=== PATIENT | female | born 1960 | race Caucasian/White ===

== ENCOUNTER 2019-01-13 10:30 | Inpatient (IN) | payer BC, OTHER ==
--- NOTE | 2019-01-02 09:18 | HP ---
HISTORY AND PHYSICAL: DATE OF ADMISSION/SURGERY: 01/13/19 DATE OF OFFICE VISIT: 01/02/19 SURGEON: Alondra Malik MD.* (DICTATED BY ELLIOT WEAVER) PROCEDURE: Left total hip arthroplasty. CHIEF COMPLAINT: Left hip pain. HISTORY OF PRESENT ILLNESS: Ms. Fine is a 58-year-old female with continued complaints of left hip pain. She has failed conservative treatment and elected to proceed with a left total hip arthroplasty. PAST MEDICAL HISTORY: Hypertension, GERD, and a history of hyperthyroidism. PAST SURGICAL HISTORY: Hernia repair and wisdom teeth removal. CURRENT MEDICATIONS: 1. Triamterene/hydrochlorothiazide 37.5/25 mg a day. 2. Glucosamine/chondroitin. 3. Calcium with vitamin D. 4. Famotidine. 5. Multivitamin. ALLERGIES: No known drug allergies. FAMILY HISTORY: Cancer and diabetes. SOCIAL HISTORY: She is a 58-year-old female. She lives with her . She does not smoke or use drugs. She reports occasional alcohol. REVIEW OF SYSTEMS: A complete 14-point review of systems was reviewed with the patient. It is positive for GERD and a history of hyperthyroidism, which was treated with methimazole. She denies a history of DVT, PE, hepatitis, HIV, or anesthesia problems. PHYSICAL EXAMINATION GENERAL: She is well developed, well nourished, in no acute distress. VITAL SIGNS: She stands 61.5 inches tall, weighs 144 pounds. Her blood pressure is 134/86, her heart rate is 64. HEENT: Normocephalic, atraumatic. NECK: Supple. No palpable lymph nodes. PULMONARY: The lungs are clear to auscultation bilaterally. CARDIAC: Regular rate and rhythm. Strong S1, S2. ABDOMEN: The abdomen is soft, nontender, nondistended. NEUROLOGICAL: She is alert and oriented x3. MUSCULOSKELETAL: Left lower extremity: The skin is intact. There are no open wounds or abrasions. She walks with an antalgic type gait favoring her left hip. She has decreased internal and external rotation of the left hip. She has a 2+ dorsalis pedis pulse. She is able to dorsiflex and plantar flex and has intact sensation. ASSESSMENT AND PLAN: Ms. Fine is a 58-year-old female with end-stage osteoarthritis of the left hip. She has failed conservative treatment and elected to proceeded with a left total hip arthroplasty. The surgery is scheduled for 01/13/[address] Malik discussed the risks and benefits of the surgery at today's visit and all of her questions were answered. She will follow up with Dr. Malik 2 weeks after the surgery. ELLIOT WEAVER [id number]/[facility] #: [id number] KEIRA
[~2019-01-13 10:30] MED LIST: Buffered Lidocaine 1% SYRIN* 1 ML/SYRINGE INTRADERM ONE; Dexamethasone IV* 4 MG/ML 1 ML (4 MG) IV SLOW PU ONE; Famotidine IV* 10 MG/ML 2 ML (20 mg) IV ONE; Gabapentin CAP(*) 300 MG PO ONE; Lactated Ringers 1000 ML Bag* 1,000 ML IV SCH; Tranexamic Acid 1,000 MG in NS 0.9% 50 ML* (outpatient use) IV SCH; celeCOXIB CAP* 200 MG PO ONE
--- OUTSIDE RECORDS SUMMARY | 2019-01-13 13:24 | XMS REPORT | Continuity of Care Document ---
:1960 External Reference #:[id number] Author Name Eileen Sims Care Team Providers Name Role Phone Bala Crow DO Primary Care Physician Unavailable Payers Date Identification Numbers Payment Provider Subscriber Policy Number: [id number] [facility] Jesu Fine PayID: [id number] [address] [place] [address] Problems Active Problems Provider Date Localized, primary osteoarthritis Jarrett Bobby M.D. Onset: 12/29/2015 Enthesopathy of knee Jarrett Bobby M.D. Onset: 12/29/2015 Localized, primary osteoarthritis of the Alondra Malik M.D. 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 ETOH Use Occasionally consumes alcohol Tobacco Use Start: Unknown Patient has never smoked Recreational Drug Use Never Used Drugs Smoking Status Reviewed: 01/08/19 Patient has never smoked Exercise Type/Frequency Exercises sporadically Allergies, Adverse Reactions, Alerts Description No Known Drug Allergies Medications Active Medications SIG Qnty Indications Ordering Provider Date Triamterene/Hydrochloro 1 by mouth every Unknown thiazide day 37.5-25mg Capsules Glucosamine Chondroitin Unknown 1500 Complex Calcium + D 1 tab by mouth Unknown every day Famotidine 1 pill every Unknown other day Multi Vitamin Daily 1 tab by mouth Unknown every day Vitamin D 1 tab by mouth Unknown every day History Medications Omeprazole 1 by mouth every day Unknown - 01/01/[address] Methimazole 1 by mouth every day Unknown - 01/01/2019 5mg Tablets Nasacort Allergy 24HR 1 spray both nares Unknown - 01/01/2019 55mcg/Act once daily Aerosol Vitamin D2 Unknown - 01/01/2019 Vitamin D3 Unknown - 01/01/2019 Medications Administered in Office Medication SIG Qnty Indications Ordering Provider Date Synvisc Or Synvisc-One Injection 1 Alondra Malik M.D. 11/28/2018 MG Injection Synvisc Or Synvisc-One Injection 1 Alondra Malik M.D. 11/21/2018 MG Injection Synvisc Or Synvisc-One Injection 1 Alondra Malik M.D. 11/14/2018 MG Injection Depomedrol 40MG Alondra Malik M.D. 10/13/2018 Injection Vital Signs Date Vital Result Comment 01/08/2019 7:32am Height 61.5 inches 5'1.50" Weight 147.00 lb Heart Rate 68 /min BP Systolic Sitting 142 mmHg Lue regular cuff BP Diastolic Sitting 84 mmHg Lue regular cuff Respiratory Rate 12 /min O2 % BldC Oximetry 97 % BMI (Body Mass Index) 27.3 kg/m2 Neck Circumference in inches 14 01/02/2019 8:05am Height 61.5 inches 5'1.50" Weight 144.00 lb Heart Rate 64 /min BP Systolic 134 mmHg BP Diastolic 82 mmHg Respiratory Rate 16 /min Body Temperature 99.2 F Pain Level 2 BMI (Body Mass Index) 26.8 kg/m2 11/28/2018 8:11am Height 61.5 inches 5'1.50" Weight 143.00 lb Heart Rate 72 /min BP Systolic 138 mmHg BP Diastolic 82 mmHg Pain Level 2 BMI (Body Mass Index) 26.6 kg/m2 11/21/2018 8:48am Height 61.5 inches 5'1.50" Weight 143.00 lb Heart Rate 82 /min BP Systolic 122 mmHg BP Diastolic 74 mmHg Pain Level 2 BMI (Body Mass Index) 26.6 kg/m2 11/14/2018 8:38am Height 61.5 inches 5'1.50" Weight 147.50 lb Heart Rate 75 /min BP Systolic 134 mmHg BP Diastolic 88 mmHg Body Temperature 97.8 F Pain Level 1 BMI (Body Mass Index) 27.4 kg/m2 10/27/2018 9:41am Height 61.5 inches 5'1.50" Weight 146.00 lb BP Systolic 152 mmHg BP Diastolic 92 mmHg Pain Level 0 BMI (Body Mass Index) 27.1 kg/m2 10/13/2018 9:27am Height 61.5 inches 5'1.50" Weight 149.00 lb Heart Rate 80 /min BP Systolic 134 mmHg BP Diastolic 84 mmHg Pain Level 8 BMI (Body Mass Index) 27.7 kg/m2 05/16/2016 8:02am Height 61 inches 5'1" Weight 150.00 lb BP Systolic Sitting 126 mmHg BP Diastolic Sitting 80 mmHg Pain Level 0 0/10 BMI (Body Mass Index) 28.3 kg/m2 02/23/2016 8:00am Height 61 inches 5'1" Weight 145.00 lb Pain Level 1 BMI (Body Mass Index) 27.4 kg/m2 12/29/2015 9:17am Height 61 inches 5'1" Weight 145.00 lb Heart Rate 84 /min BP Systolic 125 mmHg BP Diastolic 87 mmHg BMI (Body Mass Index) 27.4 kg/m2 Results Test Date Facility Test Result H/L Range Note CBC Auto Diff 01/02/2019 [facility] White Blood 6.5 10^3/uL N 3.5-10.[address] [place] [address] [phone] Red Blood Count 5.20 10^6/uL High 3.70-4.87 Hemoglobin 15.0 g/dL N 12.0-16.0 Hematocrit 45 % N 35-47 Mean Corpuscular Volume 87 fL N 80-97 Mean Corpuscular Hemoglobin 29 pg N 27-31 Mean Corpuscular HGB Conc 33 g/dL N 31-36 Red Cell Distribution Width 14 % N 10-15 Platelet Count 289 10^3/uL N 150-450 Mean Platelet Volume 7.3 fL Low 7.4-10.4 Abs Neutrophils 3.6 10^3/uL N 1.5-7.7 Abs Lymphocytes 2.3 10^3/uL N 1.0-4.8 Abs Monocytes 0.5 10^3/uL N 0-0.8 Abs Eosinophils 0.1 10^3/uL N 0-0.6 Abs Basophils 0.1 10^3/uL N 0-0.2 Abs Nucleated RBC 0.0 10^3/uL Granulocyte % 54.8 % Lymphocyte % 35.5 % Monocyte % 7.0 % Eosinophil % 1.9 % Basophil % 0.8 % Nucleated Red Blood Cells % 0.1 Urinalysis Profile 01/02/2019 [facility] Urine Color Yellow [address] [place] [address] [phone] Urine Appearance Clear Urine Specific [place] 1.014 N 1.010-1.030 Urine pH 8.0 N 5-9 Urine Urobilinogen Negative Negative Urine Ketones Negative Negative Urine Protein Negative Negative Urine Leukocytes Negative Negative Urine Blood Negative Negative * * Abnormal Negative 1 Urine Nitrite Negative Negative Urine Bilirubin Negative Negative Urine Glucose Negative Negative Inr/Protime 01/02/2019 [facility] Inr 0.93 N 0.82-1.09 2 [facility] [employer] [place] [address] [phone] Laboratory test 01/02/2019 [facility] Partial 32.3 seconds N 26.0-38.0 finding [facility] [employer] [facility] [place] [address] PTT [phone] Type & Screen 01/02/2019 [facility] Patient A Positive [facility] [place] [address] [phone] Antibody Screen NEGATIVE Comp Metabolic Panel 01/02/2019 [facility] Sodium 141 mmol/L N 135-145 [facility] [place] [address] [phone] Potassium 4.2 mmol/L N 3.5-5.0 Chloride 103 mmol/L N 101-111 Co2 Carbon Dioxide 32 mmol/L N 22-32 Anion Gap 6 mmol/L N 2-11 Glucose 91 mg/dL N 70-100 Blood Urea Nitrogen 14 mg/dL N 6-24 Creatinine 0.65 mg/dL N 0.51-0.95 BUN/Creatinine Ratio 21.5 High 8-20 Calcium 10.6 mg/dL High 8.6-10.3 Total Protein 7.3 g/dL N 6.4-8.9 Albumin 4.5 g/dL N 3.2-5.2 Globulin 2.8 g/dL N 2-4 Albumin/Globulin Ratio 1.6 N 1-3 Total Bilirubin 0.70 mg/dL N 0.2-1.0 Alkaline Phosphatase 72 U/L N 34-104 Alt 59 U/L High 7-52 Ast 33 U/L N 13-39 Egfr Non- 93.6 >60 Egfr 113.3 >60 3 Urine Culture And 01/02/2019 [facility] Urine Culture SEE RESULT [address] [place] [address] [phone] Xray 10/13/2018 Senior Clinical Data Analyst In House Inj/Aspir <pending> Major JT Or Bursa W/ US 1 *Ascorbic acid is present which may interfere with detection of blood. 2 Standard intensity warfarin therapeutic range: 2.0-3.0 High intensity warfarin therapeutic range: 2.5-3.5 3 Because ethnic data is not always readily available, this report includes an eGFR for both -Americans and non- Americans. The National Kidney Disease Education Program (NKDEP) does not endorse the use of the MDRD equation for patients that are not between the ages of 18 and 70, are , have extremes of body size, muscle mass, or nutritional status, or are non- or non-. According to the National Kidney Foundation, irrespective of diagnosis, the stage of the disease is based on the level of kidney function: Stage Description GFR(mL/min/1.73 m(2)) 1 Kidney damage with normal or decreased GFR 90 2 Kidney damage with mild decrease in GFR 60-89 3 Moderate decrease in GFR 30-59 4 Severe decrease in GFR 15-29 5 Kidney failure <15 (or dialysis) 4 SEE RESULT BELOW Name: NATALY FINE : [address]: Alondra Malik MD Acct: [id number] Unit: [id number] AGE: 58 Location: PAT Re01/02/19 SEX: F Status: REG REF SPEC: [id number] NIYA: 01/02/19-1020 [facility] DR: Alondra Malik MD REQ: [id number] RECD: 01/02/19 STATUS: WILMER FIERRO DR: Bala Crow DO _ SOURCE: URINE SPDESC: ORDERED: Urine Culture QUERIES: Urine Source: Clean Catch Procedure Result Reported Site Urine Culture Final 01/03/19- 918 ML No growth of clinically significant organisms * ML - Main Lab . END OF REPORT DEPARTMENT OF PATHOLOGY, [address] [place] [address] José Reyes M.D. Director [facility] # [id number] Procedures Date Code Description Status 11/28/2018 Inject/Drain Joint/Bursa Major W/O US Completed 11/21/2018 Inject/Drain Joint/Bursa Major W/O US Completed 11/14/2018 Inject/Drain Joint/Bursa Major W/O US Completed 10/13/2018 Inj/Aspir Major JT Or Bursa W/ US Completed Encounters Type Date Location Provider Dx Diagnosis Office Visit 01/08/2019 Pulmonology And Sleep Faviola Pierce MD R06.83 Snoring 8:00a Services Of Becky R53.83 Other fatigue Office Visit 10/27/2018 9:15a Orthopedic Alondra M17.0 Bilateral primary Services Of Hector Malik osteoarthritis of C.M.A. knee M16.11 Unilateral primary osteoarthritis, right hip M16.12 Unilateral primary osteoarthritis, left hip M25.562 Pain in left knee M25.561 Pain in right knee M25.462 Effusion, left knee M25.461 Effusion, right knee M25.551 Pain in right hip M25.552 Pain in left hip Office Visit 10/13/2018 9:00a Orthopedic Alondra M17.0 Bilateral primary Services Of [facility] Malik osteoarthritis of C.M.A. knee M16.11 Unilateral primary osteoarthritis, right hip M16.12 Unilateral primary osteoarthritis, left hip M25.562 Pain in left knee M25.561 Pain in right knee M25.462 Effusion, left knee M25.461 Effusion, right knee M25.551 Pain in right hip M25.552 Pain in left hip Office Visit 05/16/2016 8:00a Orthopedic Naman Nava70.52 Other bursitis Services Son Young of knee, left C.M.A. knee M25.651 Stiffness of right hip, not elsewhere classified Office Visit 02/23/2016 Orthopedic Jarrett M17.12 Unilateral primary 8:00a Services Of Hector Bobby osteoarthritis, left C.M.A. knee M70.52 Other bursitis of knee, left knee Office Visit 12/29/2015 Orthopedic Jarrett M17.12 Unilateral primary 9:00a Services Of Hector Bobby osteoarthritis, left C.M.A. knee M70.52 Other bursitis of knee, left knee Plan of Treatment Future Appointment(s):03/03/2019 8:00 am - Ani Partida NP at Pulmonology And Sleep Services [facility]01/23/2019 8:15 am - ELLIOT Nathan at [facility]01/13/2019 1:00 pm - MARCELO Covarrubias at [facility]01/13/2019 1:00 pm - MARCELO Cleveland at [facility]01/13/2019 1:00 pm - Alondra Malik M.D. at [facility]01/08/2019 - Faviola Pierce, MDR06.83 SnoringNew Orders:Home Sleep Testing, Scheduled: 01/08/19Follow up:2 wkfgtU66.83 Other fatigue
--- OUTSIDE RECORDS SUMMARY | 2019-01-13 13:24 | XMS REPORT | Continuity of Care Document ---
:1960 External Reference #:[id number] Author Name Shameka Stanton Care Team Providers Name Role Phone Bala Crow DO Primary Care Physician Unavailable Payers Date Identification Numbers Payment Provider Subscriber Policy Number: [id number] [facility] Jesu Fine PayID: [id number] [address] [place] [address] Problems Active Problems Provider Date Localized, primary osteoarthritis Jarrett Bobby M.D. Onset: 12/29/2015 Enthesopathy of knee Jarrett Bobby M.D. Onset: 12/29/2015 Localized, primary osteoarthritis of the Alondra Malik M.D. 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 ETOH Use Occasionally consumes alcohol Tobacco Use Start: Unknown Patient has never smoked Smoking Status Reviewed: 01/02/19 Patient has never smoked Exercise Type/Frequency Exercises sporadically Allergies, Adverse Reactions, Alerts Description No Known Drug Allergies Medications Active Medications SIG Qnty Indications Ordering Provider Date Triamterene/Hydrochloro 1 by mouth every Unknown thiazide day 37.5-25mg Capsules Glucosamine Chondroitin Unknown 1500 Complex Calcium + D Unknown Famotidine Unknown History Medications Omeprazole 1 by mouth every day Unknown - 01/01/[address] Malonezoallison 1 by mouth every day Unknown - [...] Injection Vital Signs Date Vital Result Comment 01/02/2019 8:05am Height 61.5 inches 5'1.50" Weight [...] Date Facility Test Result H/L Range Note Xray 10/13/2018 Bad Cloth Checker In House Inj/Aspir Major JT Or Bursa W/ <pending> US Procedures Date Code Description Status 11/28/2018 Inject/Drain Joint/Bursa Major W/O US Completed 11/21/2018 Inject/Drain Joint/Bursa Major W/O US Completed 11/14/201812368 Inject/Drain Joint/Bursa Major W/O US Completed 10/13/2018 80697 Inj/Aspir Major JT Or Bursa W/ US Completed Encounters Type Date Location Provider Dx Diagnosis Office Visit 10/27/2018 Orthopedic Imelda Umaña7.0 Bilateral primary 9:15a Services Of Justa Young osteoarthritis of knee M16.11 Unilateral primary osteoarthritis, right hip M16.12 Unilateral primary osteoarthritis, left hip M25.562 Pain in left knee M25.561 Pain in right knee M25.462 Effusion, left knee M25.461 Effusion, right knee M25.551 Pain in right hip M25.552 Pain in left hip Office Visit 10/13/2018 9:00a Orthopedic Alondra Segura7.0 Bilateral primary Services Of Hector Malik osteoarthritis of C.M.A. knee M16.11 Unilateral primary osteoarthritis, right hip M16.12 Unilateral primary osteoarthritis, left hip M25.562 Pain in left knee M25.561 Pain in right knee M25.462 Effusion, left knee M25.461 Effusion, right knee M25.551 Pain in right hip M25.552 Pain in left hip Office Visit 05/16/2016 8:00a Orthopedic Jarrett Kanu, M70.52 Other bursitis Services Of Hector of knee, left C.M.A. knee M25.651 Stiffness [...] knee, left knee Plan of Treatment Future Appointment(s):01/23/2019 8:15 am - ELLIOT Nathan at [facility]..01/13/2019 1:00 pm - MARCELO Covarrubias at [facility]..01/13/2019 1:00 pm - MARCELO Cleveland at [facility]..01/08/2019 8:00 am - Faviola Pierce MD at Pulmonology And Sleep Services [facility]01/13/2019 1:00 pm - Alondra Malik M.D. at [facility]..01/02/2019 - Alondra Malik M.D.M16.12 Unilateral primary osteoarthritis, left hipFollow up:Follow up: 2 weeks after vkkeenmL98.552 Pain in left hip
--- OUTSIDE RECORDS SUMMARY | 2019-01-13 13:24 | XMS REPORT | Continuity of Care Document ---
:1960 External Reference #:[id number] Author Name ELLIOT Nathan Address [address] , [place] [address] Care Team Providers Name Role Phone Bala Crow DO Primary Care Physician Unavailable Payers Date Identification Numbers Payment Provider Subscriber Policy Number: [id number] [facility] Jesu Fine PayID: [id number] [address] [place] [address] Problems Active Problems Provider Date Localized, primary osteoarthritis Jarrett Bobby M.D. Onset: 12/29/2015 Enthesopathy of knee Jarrett Bobby M.D. Onset: 12/29/2015 Localized, primary osteoarthritis of the Alondrajasmeet Malik M.D. 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 ETOH Use Occasionally consumes alcohol Tobacco [...] every day Unknown - 01/01/2019 20mg Capsules Methimazole 1 by mouth every day Unknown [...] H/L Range Note CBC Auto Diff 01/02/2019 [facility] White Blood 6.5 10^3/uL N 3.5-10.[address] [place] [address] [phone] Red Blood Count 5.20 10^6/uL High 3.70-4.87 [...] Blood Cells % 0.1 Urinalysis Profile 01/02/2019 [facility] Urine Color Yellow [address] [place] [address] [phone] Urine Appearance Clear Urine Specific [place] 1.014 N 1.010-1.030 Urine pH 8.0 N 5-9 Urine Urobilinogen Negative Negative Urine Ketones Negative Negative Urine Protein Negative Negative Urine Leukocytes Negative Negative Urine Blood Negative Negative * * Abnormal Negative 1 Urine Nitrite Negative Negative Urine Bilirubin Negative Negative Urine Glucose Negative Negative Inr/Protime 01/02/2019 [facility] Inr 0.93 N 0.82-1.[address] [place] [address] [phone] Laboratory test 01/02/2019 [facility] Partial 32.3 seconds N 26.0-38.[address] [place] [address] PTT [phone] Type & Screen 01/02/2019 [facility] Patient A Positive [address] [place] [address] [phone] Antibody Screen NEGATIVE Comp Metabolic Panel 01/02/2019 [facility] Sodium 141 mmol/L N 135-[address] [place] [address] [phone] Potassium 4.2 mmol/L N 3.5-5.0 Chloride 103 [...] 113.3 >60 3 Urine Culture And 01/02/2019 [facility] Urine Culture SEE RESULT [address] [place] [address] [phone] Xray 10/13/2018 Temperature Regulator In House Inj/Aspir <pending> Major JT Or [...] [address]: Alondra Malik MD Acct: [id number] Unit: [id number] AGE: 58 Location: [facility] Re01/02/19 SEX: F Status: REG REF SPEC: [id number] NIYA: 01/02/19 [facility] DR: Alondra Malik MD REQ: [id number] RECD: 01/02/19 STATUS: WILMER FIERRO DR: Bala Crow DO _ SOURCE: URINE SPDESC: ORDERED: Urine Culture QUERIES: Urine Source: Clean Catch Procedure Result Reported Site Urine Culture Final 01/03/19918 ML No growth of clinically significant organisms * ML - Main Lab . END OF REPORT DEPARTMENT OF PATHOLOGY, [address] [place] [address] José Reyes M.D. Director [facility] # [id number] Procedures Date Code Description Status 11/28/2018 Inject/Drain Joint/Bursa Major W/O US Completed 11/21/2018 Inject/Drain Joint/Bursa Major W/O US Completed 11/14/2018 Inject/Drain Joint/Bursa Major W/O US Completed 10/13/2018 Inj/Aspir Major JT Or Bursa W/ US Completed Encounters Type Date Location Provider Dx Diagnosis Office Visit 10/27/2018 Orthopedic Yue Umaña.0 Bilateral primary 9:15a Services Of Justa Young [...] hip, not elsewhere classified Office Visit 02/23/2016 Marisol Segura7.12 Unilateral primary 8:00a Services Of Hector Bobby osteoarthritis, left C.M.A. knee M70.52 Other bursitis of knee, left knee Office Visit 12/29/2015 Marisol Segura7.12 Unilateral primary 9:00a Services Of Hector Bobby osteoarthritis, left C.M.A. knee M70.52 Other bursitis of knee, left knee Plan of Treatment Future Appointment(s):01/23/2019 8:15 am - ELLIOT Nathan at [facility]01/13/2019 1:00 pm - MARCELO Covarrubias at [facility]01/13/2019 1:00 pm - MARCELO Cleveland at [facility]01/08/2019 8:00 am - Faviola Pierce MD at [facility]01/13/2019 1:00 pm - Alondra Malik M.D. at [facility]01/02/2019 - Alondra Malik M.D.M16.12 Unilateral primary osteoarthritis, left hipFollow up:Follow up: 2 weeks after nrxjttfE47.552 Pain in left hip
[2019-01-13] MEDS ORDERED: celeCOXIB CAP* 200 MG ONE (13:34)
[2019-01-13] MEDS ORDERED: Gabapentin CAP(*) 300 MG ONE (13:34)
[2019-01-13] MEDS ORDERED: Dexamethasone IV* 4 MG/ML 1 ML (4 MG) ONE (13:34)
[2019-01-13] MEDS ORDERED: ceFAZolin 2 GM in NS PREMIX(*) 2 GM/100 ML BAG IVPB ONE (13:35)
[2019-01-13] MEDS ORDERED: Famotidine IV* 10 MG/ML 2 ML (20 mg) ONE (13:35)
[2019-01-13] MEDS ORDERED: Midazolam* 1 MG/ML 5 ML VIAL (5 MG) ONE (14:00)
[2019-01-13] MEDS ORDERED: KETAMINE HCL* 50 MG/ML 10 ML VIAL ONE (14:00)
[2019-01-13] MEDS ORDERED: Propofol* 10 MG/ML 20 ML BTL ONE (14:01)
[2019-01-13] MEDS ORDERED: Bupivacaine 0.5% SDV PF* 30ML VIAL ONE (14:01)
[2019-01-13] MEDS ORDERED: Ondansetron INJ* 2 MG/ML VIAL ONE ×2 (14:01→18:47)
[2019-01-13] MEDS ORDERED: ROPIVACAINE 5 MG/ML 30 ML BTL (0.5%) ONE (14:25)
[2019-01-13] MEDS ORDERED: Ropivacaine (OR use only) 2 MG/ML 10 ML ONE (14:29)
[2019-01-13] MEDS ORDERED: Scopolamine 1.5 mg* PATCH TRANSDERM PRN (16:36)
[2019-01-13] MEDS ORDERED: HYDROmorphone INJ1* 1 MG/ML SYRINGE IV PRN (16:36)
[2019-01-13] MEDS ORDERED: DiMENhydriNATE IV* 50 MG/ML VIAL IV PUSH PRN (16:36)
[2019-01-13] MEDS ORDERED: Naloxone* 0.4 MG/ML 1 ML VIAL IV PRN (16:36)
[2019-01-13] MEDS ORDERED: Ondansetron INJ* 2 MG/ML VIAL IV PRN ×2 (16:36→18:24)
[2019-01-13] MEDS ORDERED: diPHENhydraMINE IV* 50 MG/ML 1 ml VIAL (BENADRYL) IV PRN (18:24)
[2019-01-13] MEDS ORDERED: oxyCODONE TAB* 5 MG TAB PO PRN (18:24)
[2019-01-13] MEDS ORDERED: Cyclobenzaprine TAB* 10 MG PO PRN (18:24)
[2019-01-13] MEDS ORDERED: traZODone TAB* 50 MG TAB PO PRN (18:24)
[2019-01-13] MEDS ORDERED: Bisacodyl SUPP* 10 MG SUPP PR PRN (18:24)
[2019-01-13] MEDS ORDERED: Magnesium Hydroxide LIQ* 30 ML UDC PO PRN (18:24)
[2019-01-13] MEDS ORDERED: traMADol TAB* 50 MG PO PRN (18:24)
[2019-01-13] MEDS ORDERED: Scopolamine 1.5 mg* PATCH ONE (18:47)
[2019-01-13] MEDS ORDERED: DiMENhydriNATE IV* 50 MG/ML VIAL ONE (19:46)
--- NOTE | 2019-01-13 19:59 | OP ---
Operative Report - Blank - Operative Report Date of Operation: 01/13/19 Note: BENJY GALAVIZ 1960 Date Of Surgery: 01/13/19 Alondra Malik MD Polymer Scientist: Dwight ZARATE did help throughout the procedure with preparation of the hip, wound retraction, manipulation of the hip, and wound closure. Anesthesiologist: Omar Rodríguez MD Anesthesia Type: Spinal Preoperative Diagnosis: Left severe degenerative osteoarthritis of the hip Postoperative Diagnosis: As above Procedure Performed: Left Total Hip Arthroplasty Complications: None Specimen: Femoral head and acetabular reamings sent to pathology. Hardware used: This is uncemented Nettie total hip arthroplasty hardware for the femur a size 2 accolade II with 132 neck femoral component, for the acetabulum a size 46C trident II tritanium cluster hole shell, a single 15 mm screw, for the insert a size 32C polyethylene insert, and for the femoral head a size 32 + 4 ceramic biolox V40 femoral head. Brief history/Indication: BENJY GALAVIZ was known in clinic and had a history of severe left hip pain. She failed conservative treatment with anti- inflammatories, pain pills, intra-articular injections and physical therapy. She elected to undergo left total hip arthroplasty due to continued pain and decreased quality of life. Radiographs showed severe end stage osteoarthritis of the hip with bone on bone contact. Informed consent was obtained from the patient. She understood the risks of surgery included but were not limited to: bleeding, infection, damage to nearby structures, intraoperative fracture, nerve palsy, failure of the hardware, early loosening, stiffness or loss of motion, dislocation, leg length discrepancy, anesthesia complications, stroke, heart attack, blood clot and . She wished to proceed. Intra-Operative findings: Intraoperatively the patient was noted to have severe loss of cartilage of the acetabulum and femoral head. Description of the Procedure: BENJY GALAVIZ was identified in the preanesthesia unit. Her left hip was marked as the correct operative side. Informed consent was signed and placed in the chart. The patient was taken to the operating room and placed under anesthesia without complication. A ventura catheter was placed. The patient was placed on the peg board with all bony prominences well padded. The left lower extremity was prepped and draped in the usual sterile fashion. Preoperative time-out was made to correctly identify the patient, side and site. Appropriate intraoperative antibiotics were given within one hour of incision. A standard posterior incision was made and carried sharply down to the lateral fascia. A new 10 blade was used to make an incision in the fascia in line with the skin incision. A charnley retractor was placed. The piriformis and conjoined tendons were identified and elevated off the posterolateral femur using electrocautery. These were tagged with number 5 Ethibond. Next electrocautery was used to make a posterolateral capsular flap and this was tagged with number 5 Ethibonds. The hip was carefully dislocated. Lesser trochanter to the center of the femoral head was measured at 55 mm. The oscillating saw was used to make the femoral neck cut. The femoral head was carefully removed. The femur was retracted anteriorly and the acetabular retractors were placed. Long-handled knife was used to sharply remove any remaining labrum from the acetabular rim. The acetabulum was sequentially reamed up to a size 45. A bleeding subchondral bone bed was obtained. A trial cup was placed and had excellent fit and stability. A 46C trident II tritanium cup was placed and had excellent stability with appropriate anteversion and abduction angle. A 15 mm screw was placed for extra stability. A size 32 C polyethylene liner was impacted into the acetabular shell. The liner was checked for stability and was stable. Next attention was turned to preparation of the femoral canal. A canal finder was used to enter the proximal femur. The femoral canal was sequentially broached up to a size 2 femoral broach trial. A trial neck and 32 + 4 trial femoral head was chosen. Lesser trochanter to center of the femoral head measurement was satisfactory. The hip was reduced and taken through a range of motion. The hip was stable in all positions with good soft tissue tension and appropriate leg lengths. The hip was dislocated and all trials were removed. The final implant chosen was a accolade II size 2 with 132 neck angle. This stem was impacted into the femoral canal without difficulty. The stem was stable with appropriate anteversion. The femoral head chosen was a 32 + 4 ceramic biolox head. The head was impacted onto the femoral neck without difficulty. The final lesser trochanter to center of the femoral head measurement was satisfactory. The hip was reduced and taken through a range of motion. The hip was stable in all positions with good soft tissue tension and appropriate leg lengths. The hip was copiously irrigated with sterile saline. The previously tagged capsule and tendons were repaired to the posterolateral femur through two trochanteric drill holes. The lateral fascia layer was closed using number 1 vicryls. The rest of the incision was closed in a layered fashion using 0 and 2-0 vicryls. The skin was closed using 3-0 monocryl suture and Dermabond. Sterile adaptic, 4x4s and paper tape was used to cover the incision. The patients anesthesia was reversed without difficulty. She was taken to the PACU in stable condition. Intended weight-bearing will be as tolerated with posterior hip precautions.
[2019-01-13] MEDS ORDERED: fentaNYL* 50 MCG/ML 2 ML VIAL (100 MCG VIAL) ONE (20:07)
[2019-01-13] MEDS: fentaNYL* 50 MCG/ML 2 ML VIAL (100 MCG VIAL) IV PRN ×2 (20:10→20:40)
[2019-01-13] MEDS: Docusate CAP* 100 MG PO SCH (21:24)
[2019-01-13] MEDS: Ferrous Sulfate TAB* 325 MG PO SCH (21:24)
[2019-01-13] MEDS: Magnesium Hydroxide LIQ* 30 ML UDC PO SCH (21:25)
[2019-01-13] MEDS: Lactated Ringers 1000 ML Bag* 1,000 ML IV SCH (21:28)
[2019-01-13] MEDS: Acetaminophen TAB* 325 MG PO SCH (22:26)
[2019-01-13] MEDS: oxyCODONE/Acetamin 5/325 MG* TAB PO PRN (22:28)
--- NOTE | 2019-01-13 23:07 | CONS ---
HOSPITAL MEDICINE CONSULTATION REPORT: DATE OF CONSULT: 01/13/19 PROVIDER: Lynsey Andrade NP ATTENDING PHYSICIAN WHILE IN THE HOSPITAL: Dr. Malik.* CONSULTING PHYSICIAN: Dr. Rosa Moore (dictated by Lynsey Andrade NP). REASON FOR CONSULT: Hypertension. HISTORY OF PRESENT ILLNESS: Ms. Fine is a 58-year-old female with past medical history significant for hypertension, GERD and a history of hypothyroidism, who presented to [facility] for an elective left total hip arthroplasty with Dr. Malik. Please see dictated H and P from ELLIOT Barnett for complete details. In brief, the patient had ongoing pain, failed conservative measures; therefore, opted for left total hip arthroplasty with Dr. Malik. In the immediate postoperative period, the patient has no complaint. She did complain of some nausea, but no other complaints. She denies any recent illnesses. She denies any fever, chills, nausea, vomiting, or diarrhea. Denies any abdominal pain. Denies any chest pain or edema. Denies any cough, hemoptysis, or shortness of breath. No gross hematuria or dysuria. No focal weakness or sensory loss. No visual complaints, dysphagia, arthralgias, myalgias, rashes, lesions, or open sores. She denies any psychosis or anxiety. Due to her history of hypertension, we were asked to see the patient in consultation to help to co-manage her hypertension during this hospitalization. PAST MEDICAL HISTORY: Significant for: 1. Hypertension. 2. GERD. 3. History of hypothyroidism. PAST SURGICAL HISTORY: Hernia repair, wisdom teeth removed. HOME MEDICATIONS: Include: 1. Dyazide 37.5/25 mg p.o. daily. 2. Multivitamin 1 tab p.o. daily. 3. Glucosamine chondroitin 1 tab p.o. daily. 4. Vitamin D3 1000 units p.o. q.a.m. 5. Calcium with vitamin D 1 tab p.o. daily. 6. Famotidine 40 mg every other day. ALLERGIES: No known drug allergies. FAMILY HISTORY: Father with a history of hypertension and diabetes. Mother with breast cancer and father with non-Hodgkin's lymphoma and retroperitoneal sarcoma, in his 70s from cancer related issues. SOCIAL HISTORY: The patient denies smoking. Does report occasional alcohol use. Denies any illicit drug use. She is . She lives with her . Surrogate decision maker in the event she is unable to make her own decisions is her . She is a full code. REVIEW OF SYSTEMS: An 11-point review of systems is completed, all pertinent positives are mentioned in the HPI, otherwise are negative. PHYSICAL EXAM: General: At this time, Ms. Fine is resting comfortably in her hospital room in her bed, she is in no acute distress. Vital Signs: Temperature was 97.3, heart rate 74, respirations are 16, O2 saturation 99%, blood pressure was 122/81. HEENT: Head is atraumatic, normocephalic. Eyes: EOMs are intact. Sclerae anicteric and not pale. Oral mucosa appeared to be moist. Neck is supple. Lungs are clear to auscultation bilaterally. No wheezes , rales, or rhonchi. Cardiac: S1, S2, regular rate and rhythm. No murmurs, rubs, or gallops. Abdomen: Soft and nontender. Bowel sounds are present x4. Musculoskeletal: She is able to move all 4 extremities. No clubbing or cyanosis. She does have an abductor pillow intact. Pedal pulses are +2 bilaterally. Skin: She does have a dressing that is dry and intact to her left hip. Neurologic: She is awake, alert and oriented x3. Speech is clear. Thought process is intact. There are no gross focal deficits. DIAGNOSTIC STUDIES/LAB DATA: Labs from 01/02/19, WBCs are 6.5, RBCs 5.20, hemoglobin 15, hematocrit was 45, platelet count was 289. INR was 0.93, APTT was 32.3. Sodium was 141, potassium 4.2, chloride 103, carbon dioxide is 32, anion gap was 6, BUN was 14, creatinine 0.65, glucose was 91, calcium was 10.6. ASTs were 33, ALTs were 59. Albumin was 4.5. Urine was within normal limits. IMPRESSION AND PLAN: Ms. Fine is a 58-year-old female with a past medical history significant for hypertension, gastroesophageal reflux disease and history of hypothyroidism, who presented to [facility] for an elective left total hip arthroplasty with Dr. Malik and then we were asked to consult due to her history of hypertension. Our recommendations are as follows: 1. Status post left total hip arthroplasty: Management per Orthopedics. PT/ OT per Orthopedics. Bowel regimen per Orthopedics. Pain management per Orthopedics. 2. Hypertension: I would hold her Dyazide at this time and then resume her Dyazide when her blood pressure returns to baseline. Her blood pressure is normotensive at 122/81 at this time, could resume the Dyazide at discharge. 3. Gastroesophageal reflux disease: I would continue her on her famotidine as previously prescribed. 4. DVT prophylaxis: Per Orthopedics. 5. Diet: She can have a regular diet. 6. Code status: She is a full code. TIME SPENT: Time spent on this consultation was approximately 60 minutes, greater than half that time was spent at the bedside reviewing events leading thus far to her hospitalization, performing physical exam, and reviewing my plan of care. I have discussed this with my attending Dr. Rosa Moore; she is in agreement with my plan. LYNSEY ANDRADE, WORKFORCE PLANNER [id number]/[facility] #: [id number] KEIRA
[2019-01-13] MEDS: ceFAZolin 1 GM ADVAN(*) 1 GM in NS 0.9% 50 ML* 50 ML IVPB SCH (23:30)
[2019-01-14] MEDS: Acetaminophen TAB* 325 MG PO SCH ×3 (05:31→21:57)
[2019-01-14 06:00] LABS: Hematocrit 33 % (35-47); Mean Platelet Volume 7.5 fL (7.4-10.4); Platelet Count 196 10^3/uL (150-450)
[2019-01-14 06:16] LABS: Calcium 8.9 mg/dL (8.6-10.3); EGFR African American 153.3 (>60); EGFR Non-African American 126.7 (>60); Potassium 3.6 mmol/L (3.5-5.0)
[2019-01-14] MEDS: ceFAZolin 1 GM ADVAN(*) 1 GM in NS 0.9% 50 ML* 50 ML IVPB SCH ×2 (07:36→15:21)
[2019-01-14] MEDS: Lactated Ringers 1000 ML Bag* 1,000 ML IV SCH (07:36)
[2019-01-14] MEDS: oxyCODONE/Acetamin 5/325 MG* TAB PO PRN ×4 (07:36→22:22)
[2019-01-14] MEDS: Ferrous Sulfate TAB* 325 MG PO SCH ×2 (08:29→22:22)
[2019-01-14] MEDS: Vitamin THERAPEUTIC TAB PO SCH (08:29)
[2019-01-14] MEDS: Apixaban* 2.5 MG TAB PO SCH ×2 (08:29→22:22)
[2019-01-14] MEDS: Magnesium Hydroxide LIQ* 30 ML UDC PO SCH ×2 (08:29→22:22)
[2019-01-14] MEDS: Cholecalciferol TAB* 1000 UNITS PO SCH (08:29)
[2019-01-14] MEDS: Docusate CAP* 100 MG PO SCH ×2 (08:29→22:22)
[2019-01-14] MEDS: Calcium/Vitamin D TAB 250/125* TAB PO SCH (08:29)
[2019-01-14] MEDS ORDERED: Triamterene/HCTZ 37.5-25 MG* CAP PO SCH (09:00)
--- NOTE | 2019-01-14 09:36 | PN ---
Progress Note - Progress Note Date of Service: 01/14/19 SOAP: Subjective: []Nataly was seen at beside this morning, she feels well, post op pain is well controlled. She denies CP, SOB, dizziness, nausea, history of DVT or PE. Objective: []Gen: Appears well, NAD, A&Ox3 LLE: left hip dressing CDI, thigh is soft, DF/PF intact, sensation intact to light touch distally, DP2+, capillary refill less than two seconds distally Calves supple and nontender without erythema, edema or palpable cords Assessment: [POD [address] Malik 01/13 Plan: []WBAT PT.OT Posterior hip precautions Eliquis 2.5 mg PO BID x 30 days post op Has yet to work with PT today, potentially home late today but patient feels more comfortable anticipating home tomorrow Vital Signs Temp 98.3 F 01/14/19 07:18 Pulse 75 01/14/19 07:18 Resp 16 01/14/19 09:24 BP 108/51 01/14/19 07:18 Pulse Ox 98 01/14/19 08:00 Intake & Output 01/13/19 01/14/19 01/14/19 18:59 06:59 18:59 Intake Total 1598 819 1083 Output Total 800 1250 Balance 700 -600 1032 Weight 145 lb 9.6 oz Intake: IV Fluids 1500 980 LR 1500 980 IVPB 50 52 ABX - CEFAZOLIN 50 52 Oral 600 Output: Corrigan 800 1250 Laboratory Last Values Hgb 11.0 g/dL (12.0-16.0) L 01/14/19 05:40 Hct 33 % (35-47) L 01/14/19 05:40 Plt Count 196 10^3/uL (150-450) 01/14/19 05:40 MPV 7.5 fL (7.4-10.4) 01/14/19 05:40 Sodium 138 mmol/L (135-145) 01/14/19 05:40 Potassium 3.6 mmol/L (3.5-5.0) 01/14/19 05:40 Chloride 105 mmol/L (101-111) 01/14/19 05:40 Carbon Dioxide 27 mmol/L (22-32) 01/14/19 05:40 Anion Gap 6 mmol/L (2-11) 01/14/19 05:40 BUN 10 mg/dL (6-24) 01/14/19 05:40 Creatinine 0.50 mg/dL (0.51-0.95) L 01/14/19 05:40 Est GFR ( Amer) 153.3 (>60) 01/14/19 05:40 Est GFR (Non-Af Amer) 126.7 (>60) 01/14/19 05:40 BUN/Creatinine Ratio 20.0 (8-20) 01/14/19 05:40 Glucose 140 mg/dL (70-100) H 01/14/19 05:40 Calcium 8.9 mg/dL (8.6-10.3) 01/14/19 05:40
[2019-01-14] MEDS ORDERED: NS 0.9% 500 ML* 500 ML IV ONE (12:00)
--- NOTE | 2019-01-14 16:57 | PN ---
Subjective Date of Service: 01/14/19 Interval History: patient seen, in the room. her BP trend reviewed. she still running low trend. I did express to her that I would not resume her Dyazide for 3 days as her BP is soft and with pain medication it will tend to remains low. I asked to check BP daily at home and resume once she has daily BP at least above 130 before she resume it. denies chest pain or shortness of breath Past Medical History: Unchanged from Admission Objective Active Medications: Acetaminophen (Tylenol Tab*) 975 mg PO Q8HR [facility] Last Admin: 01/14/19 13:37 Dose: Not Given Apixaban (Eliquis*) 2.5 mg PO BID [facility] Last Admin: 01/14/19 08:29 Dose: 2.5 mg Bisacodyl (Dulcolax Supp*) 10 mg AL DAILY PRN PRN Reason: constipation Calcium/Vitamin D (Oscal D Tab 250/125*) 1 tab PO QAM [facility] Last Admin: 01/14/19 08:29 Dose: 1 tab Cholecalciferol (Vitamin D Tab*) 1,000 units PO QAM [facility] Last Admin: 01/14/19 08:29 Dose: 1,000 units Cyclobenzaprine HCl (Flexeril Tab*) 5 mg PO TID PRN PRN Reason: SPASMS Diphenhydramine HCl (Benadryl Iv*) 25 mg IV Q6H PRN PRN Reason: itching Docusate Sodium (Colace Cap*) 100 mg PO BID [facility] Last Admin: 01/14/19 08:29 Dose: 100 mg Famotidine (Pepcid Tab*) 40 mg PO EVERY OTHER DAY [facility] Ferrous Sulfate (Ferrous Sulfate Tab*) 325 mg PO BID [facility] Last Admin: 01/14/19 08:29 Dose: 325 mg Lactated Ringer's (Lactated Ringers 1000 Ml Bag*) 1,000 mls @ 100 mls/hr IV PER RATE [facility] Last Admin: 01/14/19 07:36 Dose: 100 mls/hr Lactulose (Lactulose*) 30 ml PO Q6H PRN PRN Reason: constipation Magnesium Hydroxide (Milk Of Magnesia Liq*) 30 ml PO BID [facility] Last Admin: 01/14/19 08:29 Dose: 30 ml Magnesium Hydroxide (Milk Of Magnesia Liq*) 30 ml PO Q6H PRN PRN Reason: constipation Multivitamins (Theragran Tab*) 1 tab PO DAILY [facility] Last Admin: 01/14/19 08:29 Dose: 1 tab Ondansetron HCl (Zofran Inj*) 4 mg IV Q6H PRN PRN Reason: nausea Oxycodone HCl (Roxycodone Tab*) 10 mg PO Q4H PRN PRN Reason: PAIN - BREAKTHROUGH Oxycodone/Acetaminophen (Percocet 5/325 Tab*) 1 tab PO Q4H PRN PRN Reason: PAIN Last Admin: 01/14/19 07:36 Dose: 1 tab Oxycodone/Acetaminophen (Percocet 5/325 Tab*) 2 tab PO Q4H PRN PRN Reason: PAIN Last Admin: 01/14/19 11:47 Dose: 2 tab Tramadol HCl (Ultram*) 50 mg PO Q6H PRN PRN Reason: PAIN Trazodone HCl (Desyrel Tab*) 25 mg PO BEDTIME PRN PRN Reason: insomnia Last Admin: 01/14/19 02:14 Dose: 25 mg Vital Signs - 8 hr 01/14/19 01/14/19 01/14/19 09:24 10:19 11:10 Temperature 98.6 F Pulse Rate 73 Respiratory 16 16 Rate Blood Pressure 98/66 106/53 (mmHg) O2 Sat by Pulse 97 Oximetry 01/14/19 01/14/19 01/14/19 11:47 14:11 15:52 Temperature 98.1 F Pulse Rate 89 Respiratory 18 18 16 Rate Blood Pressure 107/52 (mmHg) O2 Sat by Pulse 96 Oximetry Oxygen Devices in Use Now: Nasal Cannula Appearance: awake, resting. no distress Eyes: No Scleral Icterus, - - EOMI Ears/Nose/Mouth/Throat: NL Teeth, Lips, Gums, Mucous Membranes Moist Neck: NL Appearance and Movements; NL JVP, Trachea Midline Respiratory: Symmetrical Chest Expansion and Respiratory Effort, Clear to Auscultation Cardiovascular: NL Sounds; No Murmurs; No JVD Abdominal: NL Sounds; No Tenderness; No Distention Result Diagrams: 01/14/19 05:40 01/14/19 05:40 Assess/Plan/Problems-Billing Assessment: - Patient Problems (1) Hypertension Current Visit: Yes Status: Acute Code(s): I10 - ESSENTIAL (PRIMARY) HYPERTENSION SNOMED Code(s): 01274577 Comment: - BP remains low in the 100's occasionally 90's systolic - I did ask her to remain off dyazide for 3 days before resuming it as she is on pain medicaiton and will tend to lower BP - After 3 days resume BP if her am BP is above 130s. - Medicine will sign off, medically stable. Please call with any questions
[2019-01-15] MEDS: oxyCODONE/Acetamin 5/325 MG* TAB PO PRN ×2 (03:35→07:48)
[2019-01-15] MEDS: Acetaminophen TAB* 325 MG PO SCH ×2 (06:06→12:57)
[2019-01-15 07:33] LABS: Hematocrit 31 % (35-47); Hemoglobin 10.3 g/dL (12.0-16.0); Mean Platelet Volume 7.6 fL (7.4-10.4); Platelet Count 180 10^3/uL (150-450)
[2019-01-15] MEDS ORDERED: Famotidine TAB* 20 MG PO SCH (09:00)
[2019-01-15] MEDS: Magnesium Hydroxide LIQ* 30 ML UDC PO SCH (09:19)
[2019-01-15] MEDS: Vitamin THERAPEUTIC TAB PO SCH (09:19)
[2019-01-15] MEDS: Docusate CAP* 100 MG PO SCH (09:19)
[2019-01-15] MEDS: Cholecalciferol TAB* 1000 UNITS PO SCH (09:19)
[2019-01-15] MEDS: Ferrous Sulfate TAB* 325 MG PO SCH (09:19)
[2019-01-15] MEDS: Calcium/Vitamin D TAB 250/125* TAB PO SCH (09:19)
[2019-01-15] MEDS: Apixaban* 2.5 MG TAB PO SCH (09:51)
[2019-01-15 11:07] VITALS: BP 111/58
--- NOTE | 2019-01-15 11:25 | PN ---
Progress Note - Progress Note Date of Service: 01/15/19 SOAP: Subjective: OOB to chair with no significant complaints of pain Objective: Vital Signs Temp Pulse Resp BP Pulse Ox 98.3 F 86 18 111/58 94 01/15/19 11:03 01/15/19 11:03 01/15/19 11:03 01/15/19 11:03 01/15/19 11:03 Laboratory Last Values Hgb 10.3 g/dL (12.0-16.0) L 01/15/19 06:59 Hct 31 % (35-47) L 01/15/19 06:59 Plt Count 180 10^3/uL (150-450) 01/15/19 06:59 MPV 7.6 fL (7.4-10.4) 01/15/19 06:59 Sodium 138 mmol/L (135-145) 01/14/19 05:40 Potassium 3.6 mmol/L (3.5-5.0) 01/14/19 05:40 Chloride 105 mmol/L (101-111) 01/14/19 05:40 Carbon Dioxide 27 mmol/L (22-32) 01/14/19 05:40 Anion Gap 6 mmol/L (2-11) 01/14/19 05:40 BUN 10 mg/dL (6-24) 01/14/19 05:40 Creatinine 0.50 mg/dL (0.51-0.95) L 01/14/19 05:40 Est GFR ( Amer) 153.3 (>60) 01/14/19 05:40 Est GFR (Non-Af Amer) 126.7 (>60) 01/14/19 05:40 BUN/Creatinine Ratio 20.0 (8-20) 01/14/19 05:40 Glucose 140 mg/dL (70-100) H 01/14/19 05:40 Calcium 8.9 mg/dL (8.6-10.3) 01/14/19 05:40 incision: c/d/i; dressing changed PE: NVI Assessment: s/p left AMRIK; POD#2 Plan: 1) PT/OT-WBAT 2) Eliquis 2.5mg BID x 4 weeks 3) continue current pain regimen 4) Home today; f/u with Dr. Malik in 2 weeks
--- NOTE | 2019-01-15 12:43 | DS ---
DATE OF ADMISSION: 01/13/2019. DATE OF DISCHARGE: 01/15/2019. SURGEON: Dr. Alondra Malik * (dictated by ELLIOT Weaver). PRINCIPAL DIAGNOSIS: End-stage osteoarthritis of the left hip. DISCHARGE DIAGNOSIS: End-stage osteoarthritis of the left hip. DISCHARGE DISPOSITION: Discharged home in stable condition. HISTORY OF PRESENT ILLNESS: Ms. Fine is a 58-year-old female with end-stage osteoarthritis of the left hip. She failed conservative treatment and elected to proceed with a left total hip arthroplasty. HOSPITAL COURSE: Ms. Fine was admitted electively to the hospital on 2018 and underwent a left total hip arthroplasty. Postoperatively she was placed on Eliquis twice a day for DVT prophylaxis. On postop day one, her H and H was 11 and 33; on postop day two, 10 and 31. Her hospital course was unremarkable and at the time of discharge she was afebrile, her vital signs were stable, her wound was clean and dry, and she was ambulating well with a walker. PHYSICAL EXAMINATION UPON DISCHARGE: Her wound was clean and dry, no signs of infection. She was able to dorsiflex and plantarflex. She was ambulating well with a walker and she had a 2+ dorsalis pedis pulse. DISCHARGE MEDICATIONS: 1. Percocet 5/325 one to two tabs every 4 to 6 hours as needed for pain. 2. Eliquis 2.5 mg every 12 hours for 4 weeks. 3. Colace 100 mg two to three tabs daily as needed for constipation. 4. Calcium and vitamin D. 5. Pepcid 40 mg daily as needed. 6. Multivitamin. DISCHARGE INSTRUCTIONS: She was discharged to home, given Percocet for pain and Eliquis twice a day for four weeks for DVT prophylaxis. She is weightbearing as tolerated with posterior hip precautions. We changed her dressing prior to discharge. She can remove this dressing on Saturday and take a shower. She will see Dr. Malik back in the clinic in two weeks. ELLIOT WEAVER [id number]/[facility] #: [id number] [facility]
== END 2019-01-15 13:15 | disposition home health service (06) | DRG 470 ==
LOC: AA 13:20 → SSU 21:15
PROVIDERS: ADMIT Orthopaedic Surgery Adult Reconstructive Orthopaedic Surgery; ATTEND Orthopaedic Surgery Adult Reconstructive Orthopaedic Surgery
PROC: 0SRB04A Replacement of Left Hip Joint with Ceramic on Polyethylene Synthetic Substitute, Uncemented, Open Approach (ICD-10-PCS; principal; 2019-01-13 16:00)
DX: M16.12 Unilateral primary osteoarthritis, left hip (principal); I10 Essential (primary) hypertension; E05.90 Thyrotoxicosis, unspecified without thyrotoxic crisis or storm; K21.9 Gastro-esophageal reflux disease without esophagitis; Z83.3 Family history of diabetes mellitus; Z72.89 Other problems related to lifestyle; Z82.49 Family history of ischemic heart disease and other diseases of the circulatory system; Z80.7 Family history of other malignant neoplasms of lymphoid, hematopoietic and related tissues; Z80.51 Family history of malignant neoplasm of kidney; Z80.3 Family history of malignant neoplasm of breast
CPT/HCPCS: 36415; 80048; 85014; 85018; 85049; 88304; 88311; A9270-GY; C1713; C1776; J0690; J1100; J1240; J2250; J2405; J2704; J2795; J3010; J3490

== ENCOUNTER 2021-02-28 06:58 | Observation (INO) ==
[~2021-02-28 06:58] MED LIST changes: +Buffered Lidocaine 1% SYRIN 1 ml INTRADERM ONE; -Buffered Lidocaine 1% SYRIN* 1 ML/SYRINGE INTRADERM ONE; +Dexamethasone IV 4 MG/ML VIAL 1 ml VIAL IV SLOW PU ONE; -Dexamethasone IV* 4 MG/ML 1 ML (4 MG) IV SLOW PU ONE; +Famotidine IV 10 MG/ML 2 ml VIAL (20 mg) IV ONE; -Famotidine IV* 10 MG/ML 2 ML (20 mg) IV ONE; -Gabapentin CAP(*) 300 MG PO ONE; -Lactated Ringers 1000 ML Bag* 1,000 ML IV SCH; +Lactated Ringers 1000 ml BAG 1,000 ML IV SCH; -Tranexamic Acid 1,000 MG in NS 0.9% 50 ML* (outpatient use) IV SCH; -celeCOXIB CAP* 200 MG PO ONE
[2021-02-28] MEDS ORDERED: ceFAZolin 2 GM in NS PREMIX 2 GM/100 ML BAG IVPB ONE (07:22)
[2021-02-28] MEDS ORDERED: Dexamethasone IV 4 MG/ML VIAL 1 ml VIAL ONE (07:22)
[2021-02-28] MEDS ORDERED: Famotidine IV 10 MG/ML 2 ml VIAL (20 mg) ONE (07:22)
[2021-02-28] MEDS ORDERED: Phenylephrine IV 10 MG/ML 1 ml VIAL ONE (08:01)
[2021-02-28] MEDS ORDERED: Lidocaine 2% PF 5 ML VIAL ONE (08:02)
[2021-02-28] MEDS ORDERED: Propofol 0 MG/0 ML BTL ONE (08:02)
[2021-02-28] MEDS ORDERED: fentaNYL 100 mcg/2 ml 50 MCG/ML VIAL ONE ×2 (08:02→12:59)
[2021-02-28] MEDS ORDERED: Propofol 10 MG/ML 20 ML BTL ONE (08:02)
[2021-02-28] MEDS ORDERED: Glycopyrrolate IV 0.2 MG/ML 1 ML VIAL ONE (08:02)
[2021-02-28] MEDS ORDERED: Midazolam 2 mg/2 ml VIAL 1 mg/ml 2 ml VIAL (2 mg) ONE (08:02)
[2021-02-28] MEDS ORDERED: Ondansetron 4 mg VIAL 2 MG/ML 2 ml VIAL ONE (08:07)
[2021-02-28] MEDS ORDERED: Prochlorperazine 5 mg/ml 2 ml VIAL (10 mg) IV PRN (08:44)
[2021-02-28] MEDS ORDERED: Naloxone 0.4 mg VIAL 0.4 mg/ml 1 ml VIAL IV PRN (08:44)
[2021-02-28] MEDS ORDERED: fentaNYL 100 mcg/2 ml 50 MCG/ML VIAL IV PRN (08:44)
[2021-02-28] MEDS ORDERED: Morphine 4 MG/ML VIAL (1 ml) IV PRN (08:44)
[2021-02-28] MEDS ORDERED: Propofol 1,000 MG/100 ML BTL ONE (08:49)
[2021-02-28] MEDS ORDERED: Bupivacaine 0.5% SDV PF 30ML VIAL ONE (08:59)
[2021-02-28] MEDS ORDERED: Scopolamine PATCH Remove NOTE PATCH OFF SCH (10:00)
[2021-02-28] MEDS ORDERED: Magnesium Hydroxide LIQ 30 ML UDC PO PRN (10:42)
[2021-02-28] MEDS ORDERED: Lactulose 30 ml UDC PO PRN (10:42)
[2021-02-28] MEDS ORDERED: diPHENhydraMINE 25 mg TAB PO PRN (10:42)
[2021-02-28] MEDS ORDERED: diPHENhydraMINE IV 50 MG/ML 1 ml VIAL (BENADRYL) IV PRN (10:42)
[2021-02-28] MEDS ORDERED: Ondansetron ODT 4 mg TAB 4 MG TAB PO PRN (10:42)
[2021-02-28] MEDS ORDERED: Ondansetron 4 mg VIAL 2 MG/ML 2 ml VIAL IV PRN (10:42)
[2021-02-28] MEDS ORDERED: EPHEDrine (Pressors) 50 MG/ML VIAL ONE (10:51)
[2021-02-28] MEDS ORDERED: Prochlorperazine 5 mg/ml 2 ml VIAL (10 mg) ONE (14:37)
[2021-02-28] MEDS: Lactated Ringers 1000 ml BAG 1,000 ML IV SCH (15:54)
[2021-02-28] MEDS: ceFAZolin 1 GM ADVAN 1 GM in NS 0.9% 50 ML 50 ML IVPB SCH (17:36)
[2021-02-28] MEDS: Magnesium Hydroxide LIQ 30 ML UDC PO SCH (22:23)
[2021-03-01] MEDS: Lactated Ringers 1000 ml BAG 1,000 ML IV SCH (02:03)
[2021-03-01] MEDS: ceFAZolin 1 GM ADVAN 1 GM in NS 0.9% 50 ML 50 ML IVPB SCH ×2 (02:35→10:11)
[2021-03-01 07:35] LABS: Hematocrit 32 % (35-47); Hemoglobin 11.1 g/dL (12.0-16.0); Mean Platelet Volume 7.7 fL (7.4-10.4); Platelet Count 198 10^3/uL (150-450)
[2021-03-01 07:50] LABS: Calcium 8.7 mg/dL (8.6-10.3); EGFR African American 96.9 (>60); EGFR Non-African American 80.1 (>60); Potassium 3.6 mmol/L (3.5-5.0)
[2021-03-01] MEDS: Magnesium Hydroxide LIQ 30 ML UDC PO SCH (08:29)
[2021-03-01] MEDS ORDERED: Vitamin THERAPEUTIC TAB PO SCH (09:00)
[2021-03-01 11:50] VITALS: BP 111/66
== END 2021-03-01 15:30 | disposition home or self-care (01) ==
LOC: OR 06:58 → SSU 06:58 → MERGE 07:30
PROVIDERS: ADMIT Orthopaedic Surgery Adult Reconstructive Orthopaedic Surgery; ATTEND Orthopaedic Surgery Adult Reconstructive Orthopaedic Surgery